=== PATIENT | female | born 2000 | race Caucasian/White ===

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

== ENCOUNTER 2021-05-06 09:34 | Outpatient (CLI) | payer BC, SELFPAY ==
[2021-05-06 09:42] LABS: Bacteria 0 SEEN /hpf (None Seen); Mucous, Urine 0 SEEN /hpf (<or=2+); Red Blood Cells-Urine 0 SEEN /hpf (0-5); Squamous Epithelial Cells - UA 0 SEEN /hpf (5-10); White Blood Cells 0 SEEN /hpf (0-5)
[2021-05-06 11:30] LABS: Color, Urine Yellow (Yellow); Glucose, Dipstick Normal (Normal); Ketone-Dipstick Negative (Negative); Leukocyte Esterase-Dipstick 100 /ul (Negative); Nitrite-Dipstick Negative (Negative); Occult Blood-Urine Negative /ul (Negative); Protein-Dipstick 15 mg/dl (Negative); Specific Gravity, Urine 1.015 (1.002-1.030); Urine Bilirubin Dipstick Negative (Negative); Urine Clarity Clear (Clear); Urine Urobilinogen Normal (Normal)
[2021-05-06 11:50] LABS: Albumin, Serum 4.2 g/dL (3.2-5.0); BUN 13 mg/dL (7-18); BUN/Creat Ratio 13.6 RATIO (10-20); Calcium,Total 9.1 mg/dL (8.5-10.1); Chloride 104 mmol/L (98-107); Creatinine, Serum 0.96 mg/dL (0.55-1.02); EST Glomerular Filtration Rate 80 mL/min (>60); Est Glom Filt Rate - Afr Amer 97 mL/min (>60); Glucose 79 mg/dL (74-106); Phosphorus 3.2 mg/dL (2.5-4.9); Potassium 4.1 mmol/L (3.5-5.1); Sodium Level 138 mmol/L (136-145)
[2021-05-06 11:53] LABS: Vitamin D,25 Hydroxy 16.4 ng/mL
== END 2021-05-06 23:59 | disposition home or self-care (01) ==
LOC: LAB 09:37
PROVIDERS: Referring Provider Internal Medicine Nephrology; Visit Provider Internal Medicine Nephrology
DX: E55.9 Vitamin D deficiency, unspecified (principal); N18.2 Chronic kidney disease, stage 2 (mild)
CPT/HCPCS: 36415; 80069; 81001; 82306

== ENCOUNTER 2021-07-02 10:21 | Outpatient (CLI) | payer BC, SELFPAY ==
[2021-07-02 10:27] LABS: Mucous, Urine 0 SEEN /hpf (<or=2+); Red Blood Cells-Urine 0 SEEN /hpf (0-5)
[2021-07-02 11:23] LABS: Color, Urine Yellow (Yellow); Glucose, Dipstick Normal (Normal); Ketone-Dipstick Negative (Negative); Leukocyte Esterase-Dipstick 500 /ul (Negative); Nitrite-Dipstick Negative (Negative); Occult Blood-Urine Negative /ul (Negative); Protein-Dipstick 15 mg/dl (Negative); Specific Gravity, Urine 1.015 (1.002-1.030); Urine Bilirubin Dipstick Negative (Negative); Urine Clarity Sl. Cloudy (Clear); Urine Urobilinogen Normal (Normal)
[2021-07-02 11:32] LABS: Bacteria 1+ /hpf (None Seen); Squamous Epithelial Cells - UA 0-5 SEEN /hpf (5-10); White Blood Cells 25-50 SEEN /hpf (0-5)
[2021-07-02 11:47] LABS: Albumin, Serum 3.9 g/dL (3.2-5.0); BUN 14 mg/dL (7-18); Calcium,Total 9.2 mg/dL (8.5-10.1); Chloride 106 mmol/L (98-107); EST Glomerular Filtration Rate 76 mL/min (>60); Est Glom Filt Rate - Afr Amer 91 mL/min (>60); Glucose 68 mg/dL (74-106); Phosphorus 4.3 mg/dL (2.5-4.9); Potassium 3.9 mmol/L (3.5-5.1); Sodium Level 141 mmol/L (136-145)
[2021-07-02 11:50] LABS: Vitamin D,25 Hydroxy 23.2 ng/mL
== END 2021-07-02 23:59 | disposition home or self-care (01) ==
PROVIDERS: Referring Provider Internal Medicine Nephrology; Visit Provider Internal Medicine Nephrology
DX: N18.2 Chronic kidney disease, stage 2 (mild) (principal); E55.9 Vitamin D deficiency, unspecified
CPT/HCPCS: 36415; 80069; 81001; 82306

== ENCOUNTER → 2022-08-14 | Outpatient (CLI) | payer BC, SELFPAY ==
[2022-08-14 15:27] LABS: Mucous, Urine 0 SEEN /hpf (<or=2+); Red Blood Cells-Urine 0 SEEN /hpf (0-5)
[2022-08-14 15:44] LABS: Color, Urine Yellow (Yellow); Glucose, Dipstick Normal (Normal); Ketone-Dipstick Negative (Negative); Leukocyte Esterase-Dipstick 100 /ul (Negative); Nitrite-Dipstick Negative (Negative); Occult Blood-Urine Negative /ul (Negative); Protein-Dipstick 30 mg/dl (Negative); Specific Gravity, Urine 1.015 (1.002-1.030); Urine Bilirubin Dipstick Negative (Negative); Urine Clarity Sl. Cloudy (Clear); Urine Urobilinogen 1 mg/dl (Normal)
[2022-08-14 15:59] LABS: Bacteria RARE /hpf (None Seen); Squamous Epithelial Cells - UA 0-5 SEEN /hpf (5-10); White Blood Cells 5-10 SEEN /hpf (0-5)
[2022-08-14 16:05] LABS: Protein, Urine (Random) 28.5 mg/dL (<11.9); Protein:Creat Ratio 184 mg/g CRE (0-200)
[2022-08-14 16:16] LABS: Vitamin D,25 Hydroxy 22.8 ng/mL
[2022-08-14 16:18] LABS: Anion Gap 8 (5-15); BUN 17 mg/dL (7-18); BUN/Creat Ratio 16.2 RATIO (10-20); Calcium,Total 9.4 mg/dL (8.5-10.1); Chloride 105 mmol/L (98-107); Creatinine, Serum 1.05 mg/dL (0.55-1.02); EST Glomerular Filtration Rate 71 mL/min (>60); Est Glom Filt Rate - Afr Amer 85 mL/min (>60); Glucose 86 mg/dL (74-106); Potassium 3.6 mmol/L (3.5-5.1); Sodium Level 137 mmol/L (136-145)
== END | disposition home or self-care (01) ==
LOC: LAB 15:22
PROVIDERS: Referring Provider Nurse Practitioner Adult Health; Visit Provider Nurse Practitioner Adult Health
DX: E55.9 Vitamin D deficiency, unspecified (principal); N18.2 Chronic kidney disease, stage 2 (mild)
CPT/HCPCS: 36415; 80048; 81001; 82306; 82570; 83970; 84156

== ENCOUNTER → 2023-07-01 | Outpatient (CLI) | payer BC, SELFPAY ==
[2023-07-01 13:15] LABS: Anion Gap 4 (5-15); BUN 12 mg/dL (7-18); BUN/Creat Ratio 16.5 RATIO (10-20); Calcium,Total 9.3 mg/dL (8.5-10.1); Chloride 105 mmol/L (98-107); Creatinine, Serum 0.73 mg/dL (0.55-1.02); EST Glomerular Filtration Rate 107 mL/min (>60); Est Glom Filt Rate - Afr Amer 129 mL/min (>60); Glucose 86 mg/dL (74-106); Potassium 3.9 mmol/L (3.5-5.1); Sodium Level 136 mmol/L (136-145)
[2023-07-01 13:27] LABS: Microalbumin,Random Urine 16.3 mg/L (NO RANGE EST.); Microalbumin:Creatinine Ratio 18.1 mg/g CRE (<30 mg/g CRE)
== END | disposition home or self-care (01) ==
LOC: LAB 12:11
PROVIDERS: PCP Registered Nurse; Referring Provider Internal Medicine Nephrology; Visit Provider Internal Medicine Nephrology
DX: N18.2 Chronic kidney disease, stage 2 (mild) (principal)
CPT/HCPCS: 36415; 80048; 82043; 82570

== ENCOUNTER 2024-01-16 04:36 | Inpatient (IN) | payer BC, SELFPAY ==
[2024-01-16] VITALS (95 sets, daily range): BP systolic 104–183; BP diastolic 58–106; PULSE 72–144; RESP 14–18; TEMP 36.3–37.6; O2SAT 86–100; BMI 23.6
[2024-01-16 03:47] LABS: Absolute Lymphocyte Count 1.24 X10^3/uL (0.83-4.51); Basophil# 0.03 X10^3/uL; Basophil% 0.3 % (0-1); Eosinophil# 0.04 X10^3/uL; Eosinophils% 0.4 % (0-5); Hematocrit 32.4 % (37-47); Hemoglobin 11.1 g/dL (12.0-15.0); Lymphocyte # 1.24 X10^3/ul (0.83-4.51); Lymphocyte % 13.4 % (19-41); Mean Corp Hgb Conc 34.3 g/dL (32-36); Mean Corpuscular Hgb 30.7 pg (27.0-32.0); Mean Corpuscular Volume 89.5 fL (81-99); Mean Platelet Vol. 10.4 fl (6.2-12.0); Monocyte# 0.82 X10^3/uL; Monocyte% 8.9 % (0-10); NRBC Flagged by Analyzer 0 % (0-5); Neutrophil # 7.04 X10^3/uL (2.7-7.7); Neutrophil % 76.5 % (47-70); Platelet Count 233 K/mm3 (150-450); RBC Distribution Width CV 13.8 % (11.6-14.6); RBC Distribution Width SD 45.3 fl (35.1-43.9); Red Blood Count 3.62 M/mm3 (4.2-5.4); White Blood Count 9.2 K/mm3 (4.4-11.0)
[2024-01-16 04:13] LABS: Protein, Urine (Random) 35.6 mg/dL (<11.9); Protein:Creat Ratio 497 mg/g CRE (0-200)
[2024-01-16 04:14] LABS: ALB/GLOB Ratio 0.7 RATIO (0.9-2.4); AST(SGOT) 20 U/L (15-37); Alanine Aminotransfer ALT/SGPT 16 U/L (13-56); Albumin, Serum 2.6 g/dL (3.2-5.0); Alkaline Phosphatase 165 U/L (45-117); Anion Gap 7 (5-15); BUN 12 mg/dL (7-18); BUN/Creat Ratio 12.5 RATIO (10-20); Calcium,Total 8.5 mg/dL (8.5-10.1); Chloride 108 mmol/L (98-107); Creatinine, Serum 0.96 mg/dL (0.55-1.02); EST Glomerular Filtration Rate 77 mL/min (>60); Est Glom Filt Rate - Afr Amer 93 mL/min (>60); Estimated Creatinine Clearance 76.04 ml/min; Globulin 3.9 g/dL (2.2-4.2); Glucose 91 mg/dL (74-106); Potassium 3.9 mmol/L (3.5-5.1); Protein, Total 6.5 g/dL (6.4-8.2); Sodium Level 136 mmol/L (136-145); Uric Acid 5.6 mg/dL (2.6-6.0)
[2024-01-16] MEDS: miSOPROStol 25 MCG TABLET PO (05:39)
[2024-01-16] MEDS: fentaNYL 100 MCG/2 ML Ampul IV ×2 (05:39→07:59)
[2024-01-16 07:54] LABS: Syphilis Antibodies Non-reactive
[2024-01-16] MEDS: Lactated Ringers 1,000 ML 999 ML IV (08:23)
[2024-01-16] MEDS: Ondansetron 4 MG/2 ML Vial IV (08:50)
[2024-01-16] MEDS: fentaNYL-bupivacaine (epidural) 100 ML BAG EPIDURAL ×2 (09:59→14:23)
[2024-01-16] MEDS: Lactated Ringers 1,000 ML 200 ML IV (10:16)
--- NOTE | 2024-01-16 10:55 | PCM.HP.OB ---
HPI - General General Date of Admission: 01/16/24 HPI Narrative ABHI ESCOBAR, is a 23 F who presents at 38w5d with irregular contractions. Upon arrival BP mildly elevated but still normal range. BP elevated to 140's and urine P/C ratio elevated, decision for induction of labor due to preeclampsia. complicated by history of CKD but has been stable during . Maternal Data Information KEANU Calculator Estimated Delivery Date Method Current WG Current Estimate 01/25/24 Manual 38w 5d PFSH PFSH Medical History (Updated 01/16/24 @ 20:07 by Grace Barry CNM) Pre-eclampsia Kidney disease Home Medications ?Medication ?Instructions ?Recorded ?Last Taken ?Type aspirin 81 mg tablet,delayed 81 mg PO DAILY 01/16/24 Unknown History release (Adult Aspirin Regimen) vit-iron fum-folic ac 1 tab PO DAILY 01/16/24 Unknown History Allergy/AdvReac Type Severity Reaction Status Date / Time No Known Allergies Allergy Verified 01/16/24 02:06 Surgical History (Updated 01/16/24 @ 05:01 by Deann Ruiz) History of surgery Social History (Updated 07/06/17 @ 14:09 by Salbador LARA, MARCO) Smoking Status: Never smoker History Elective abortions Hx Para 0 Spontaneous abortions Hx # Term Pregnancies Ectopic pregnancies Hx # Pregnancies Multiple births # of living children NST FHR Rate Baby A Baseline: 145 Variability:: Moderate Accelerations:: 15 x 15 Decelerations:: None FHR Category:: Category I Uterine Activity:: every 4 minutes Vital Signs Vital Signs Vital Signs: 01/16/24 02:02 01/16/24 02:02 01/16/24 02:02 Temperature Temperature Source Temporal Pulse Rate 92 Respiratory Rate Blood Pressure 136/91 H BP Systolic 136 BP Diastolic 91 Pulse Ox 01/16/24 02:02 01/16/24 02:02 01/16/24 03:09 Temperature 98.2 F Temperature Source Pulse Rate Respiratory Rate 14 Blood Pressure 141/93 H BP Systolic 141 BP Diastolic 93 Pulse Ox 01/16/24 03:09 01/16/24 03:19 01/16/24 03:19 Temperature Temperature Source Pulse Rate 76 84 Respiratory Rate Blood Pressure 145/93 H BP Systolic 145 BP Diastolic 93 Pulse Ox 01/16/24 05:42 01/16/24 05:42 01/16/24 05:42 Temperature Temperature Source Temporal Pulse Rate 76 Respiratory Rate 14 Blood Pressure BP Systolic BP Diastolic Pulse Ox 01/16/24 05:42 01/16/24 05:42 01/16/24 05:44 Temperature 97.8 F Temperature Source Pulse Rate Respiratory Rate Blood Pressure 138/79 H BP Systolic 138 BP Diastolic 79 Pulse Ox 97 01/16/24 05:44 01/16/24 07:41 01/16/24 07:41 Temperature Temperature Source Pulse Rate 75 93 Respiratory Rate Blood Pressure BP Systolic BP Diastolic Pulse Ox 92 01/16/24 07:41 01/16/24 07:41 01/16/24 07:41 Temperature Temperature Source Pulse Rate 92 Respiratory Rate Blood Pressure 183/106 H BP Systolic 183 BP Diastolic 106 Pulse Ox 98 01/16/24 07:41 01/16/24 07:41 01/16/24 07:41 Temperature Temperature Source Temporal Pulse Rate 77 Respiratory Rate 16 Blood Pressure BP Systolic BP Diastolic Pulse Ox 01/16/24 07:41 01/16/24 07:41 01/16/24 07:42 Temperature 98.6 F Temperature Source Pulse Rate Respiratory Rate Blood Pressure 163/93 H BP Systolic 163 BP Diastolic 93 Pulse Ox 98 01/16/24 07:42 01/16/24 08:04 01/16/24 08:04 Temperature Temperature Source Pulse Rate 76 77 Respiratory Rate Blood Pressure 169/98 H BP Systolic 169 BP Diastolic 98 Pulse Ox 01/16/24 08:05 01/16/24 08:05 01/16/24 09:05 Temperature Temperature Source Pulse Rate 78 91 Respiratory Rate Blood Pressure 146/82 H BP Systolic 146 BP Diastolic 82 Pulse Ox 01/16/24 09:05 01/16/24 09:10 01/16/24 09:10 Temperature Temperature Source Pulse Rate 96 Respiratory Rate Blood Pressure BP Systolic BP Diastolic Pulse Ox 97 98 01/16/24 09:15 01/16/24 09:15 01/16/24 09:20 Temperature Temperature Source Pulse Rate 144 H 88 Respiratory Rate Blood Pressure BP Systolic BP Diastolic Pulse Ox 97 01/16/24 09:20 01/16/24 09:26 01/16/24 09:26 Temperature Temperature Source Pulse Rate 84 Respiratory Rate Blood Pressure 141/90 H BP Systolic 141 BP Diastolic 90 Pulse Ox 97 01/16/24 09:27 01/16/24 09:27 01/16/24 09:28 Temperature Temperature Source Pulse Rate 102 H 86 Respiratory Rate Blood Pressure BP Systolic BP Diastolic Pulse Ox 97 01/16/24 09:28 01/16/24 09:31 01/16/24 09:31 Temperature Temperature Source Pulse Rate 88 Respiratory Rate Blood Pressure 174/98 H BP Systolic 174 BP Diastolic 98 Pulse Ox 94 01/16/24 09:32 01/16/24 09:32 01/16/24 09:33 Temperature Temperature Source Pulse Rate 82 Respiratory Rate Blood Pressure 137/75 H BP Systolic 137 BP Diastolic 75 Pulse Ox 97 01/16/24 09:33 01/16/24 09:37 01/16/24 09:37 Temperature Temperature Source Pulse Rate 80 95 Respiratory Rate Blood Pressure BP Systolic BP Diastolic Pulse Ox 98 01/16/24 09:38 01/16/24 09:38 01/16/24 09:42 Temperature Temperature Source Pulse Rate 78 89 Respiratory Rate Blood Pressure 143/81 H BP Systolic 143 BP Diastolic 81 Pulse Ox 01/16/24 09:42 01/16/24 09:45 01/16/24 09:45 Temperature Temperature Source Pulse Rate 106 H Respiratory Rate Blood Pressure BP Systolic BP Diastolic Pulse Ox 97 86 01/16/24 09:47 01/16/24 09:47 01/16/24 09:52 Temperature Temperature Source Pulse Rate 97 101 H Respiratory Rate Blood Pressure BP Systolic BP Diastolic Pulse Ox 97 01/16/24 09:52 01/16/24 09:57 01/16/24 09:57 Temperature Temperature Source Pulse Rate 94 Respiratory Rate Blood Pressure BP Systolic BP Diastolic Pulse Ox 98 97 01/16/24 09:59 01/16/24 09:59 01/16/24 10:02 Temperature Temperature Source Pulse Rate 83 86 Respiratory Rate Blood Pressure 144/85 H BP Systolic 144 BP Diastolic 85 Pulse Ox 01/16/24 10:02 01/16/24 10:02 01/16/24 10:02 Temperature 98.6 F Temperature Source Temporal Pulse Rate Respiratory Rate Blood Pressure BP Systolic BP Diastolic Pulse Ox 97 01/16/24 10:07 01/16/24 10:07 01/16/24 10:10 Temperature Temperature Source Pulse Rate 87 Respiratory Rate Blood Pressure 129/74 H BP Systolic 129 BP Diastolic 74 Pulse Ox 98 01/16/24 10:10 01/16/24 10:12 01/16/24 10:12 Temperature Temperature Source Pulse Rate 86 83 Respiratory Rate Blood Pressure BP Systolic BP Diastolic Pulse Ox 97 01/16/24 10:17 01/16/24 10:17 01/16/24 10:18 Temperature Temperature Source Pulse Rate 94 Respiratory Rate Blood Pressure 128/73 H BP Systolic 128 BP Diastolic 73 Pulse Ox 99 01/16/24 10:18 01/16/24 10:22 01/16/24 10:22 Temperature Temperature Source Pulse Rate 100 92 Respiratory Rate Blood Pressure BP Systolic BP Diastolic Pulse Ox 99 01/16/24 10:27 01/16/24 10:27 01/16/24 10:29 Temperature Temperature Source Pulse Rate 103 H Respiratory Rate Blood Pressure 133/77 H BP Systolic 133 BP Diastolic 77 Pulse Ox 99 01/16/24 10:29 01/16/24 10:32 01/16/24 10:32 Temperature Temperature Source Pulse Rate 83 85 Respiratory Rate Blood Pressure BP Systolic BP Diastolic Pulse Ox 98 01/16/24 10:37 01/16/24 10:37 01/16/24 10:38 Temperature Temperature Source Pulse Rate 87 Respiratory Rate Blood Pressure 124/71 H BP Systolic 124 BP Diastolic 71 Pulse Ox 98 01/16/24 10:38 01/16/24 10:42 01/16/24 10:42 Temperature Temperature Source Pulse Rate 85 84 Respiratory Rate Blood Pressure BP Systolic BP Diastolic Pulse Ox 98 01/16/24 10:47 01/16/24 10:47 01/16/24 10:52 Temperature Temperature Source Pulse Rate 102 H 100 Respiratory Rate Blood Pressure BP Systolic BP Diastolic Pulse Ox 98 01/16/24 10:52 Temperature Temperature Source Pulse Rate Respiratory Rate Blood Pressure BP Systolic BP Diastolic Pulse Ox 98 Weight Weight: 133 lb Body Mass Index (BMI) 23.6 Physical Exam Const alert and oriented x3 General Appearance: cooperative Orientation / Consciousness: awake, oriented to person, oriented to place and oriented to time Exam Limitations: no limitations HEENT normocephalic Head and Scalp: normal to inspection, normocephalic and atraumatic Face and Sinus: normal facial exam Eyes General Eye: normal appearance of both eyes Neck full ROM Chest Chest: symmetrical chest wall rise Resp normal respiratory effort and normal air movement Auscultation: clear to auscultation bilaterally Cardio regular rate, regular rhythm, S1 normal heart sound, S2 normal heart sound, no murmurs, no rub, no gallops and no clicks GI normal to inspection, nondistended, normoactive bowel sounds and non-tender appearance of the vagina normal Bladder / Kidney Exam: no CVA tenderness Back/Spine normal ROM Extremity normal to inspection and full ROM Skin no rashes or lesions noted Neuro oriented x3, CN's II-XII intact bilaterally and moves all extremities Sensorium / Orientation: awake, alert and oriented to person Motor Exam: clonus absent Deep Tendon Reflexes: Rt Patellar (L4): 2+ and Lt Patellar (L4): 2+ Labs Labs Labs: Blood Type O POSITIVE Antibody Screen NEGATIVE Hct 32.4 % (37-47) L Hgb 11.1 g/dL (12.0-15.0) L Syphilis Total Ab Non-reactive Rubella immune RPR negative HBsAG negative HepC negative HIV negative O positive GC/CT negative GBS negative Assessment & Plan (1) Anxiety: (2) Chronic kidney disease (CKD) stage G2/A1, mildly decreased glomerular filtration rate (GFR) between 60-89 mL/min/1.73 square meter and albuminuria creatinine ratio less than 30 mg/g: (3) Pre-eclampsia: (4) Encounter for induction of labor: PLAN: Plan 1) Admit to labor and delivery induction of labor due to elevated BP and P/C ratio, preeclampsia. 2) Routine labs 3) Continuous EFM 4) Pain management upon request 5) Cytotec for cervical ripening 6) Dr. Kip gates physician and notified of patient status, above assessment, and plan.
[2024-01-16] MEDS: Oxytocin 15 Units/NS 250ml 15 UNITS/250 ML IV.SOLN 2 UNITS IV (12:21)
--- NOTE | 2024-01-16 17:30 | PCM.PN.OB ---
Subjective Subjective Pushing for 3hours, epidural effective and turned down. Increased maternal fatigue and musculoskeletal discomfort. Objective Data Objective Data Vital Signs: Vital Signs Temp Pulse Resp BP Pulse Ox 98.8 F 72 16 157/88 H 98 01/16/24 17:26 01/16/24 17:25 01/16/24 17:26 01/16/24 17:25 01/16/24 17:26 Weight: 133 lb Body Mass Index (BMI) 23.6 Intake & Output: Intake and Output for Last 24 Hours 01/14/24 01/15/24 01/16/24 23:59 23:59 22:59 Intake Total 1250.33 / 1250.33 Output Total 400 / 400 Balance 850.33 / 850.33 Lab / Micro Data 01/16/24 03:35 01/16/24 03:35 Labs: Laboratory Results - last 24 hr 01/16/24 03:35: WBC 9.2, RBC 3.62 L, Hgb 11.1 L, Hct 32.4 L, MCV 89.5, MCH 30.7, MCHC 34.3, RDW Std Deviation 45.3 H, RDW Coeff of Jamar 13.8, Plt Count 233, MPV 10.4, Immature Gran % (Auto) 0.500, Neut % (Auto) 76.5 H, Lymph % (Auto) 13.4 L, [place] % (Auto) 8.9, Eos % (Auto) 0.4, Baso % (Auto) 0.3, Absolute Neuts (auto) 7.0, Absolute Lymphs (auto) 1.24, Nucleated RBC % 0, Sodium 136, Potassium 3.9, Chloride 108 H, Carbon Dioxide 21.0, Anion Gap 7, BUN 12, Creatinine 0.96, Estim Creat Clear Calc 76.04, Est GFR (MDRD) Af Amer 93, Est GFR (MDRD) Non-Af 77, BUN/Creatinine Ratio 12.5, Glucose 91, Uric Acid 5.6, Calcium 8.5, Total Bilirubin 0.80, AST 20, ALT 16, Alkaline Phosphatase 165 H, Total Protein 6.5, Albumin 2.6 L, Globulin 3.9, Albumin/Globulin Ratio 0.7 L, U Random Total Protein 35.6 H, Urine Creatinine 71.70, Protein/Creatinin Ratio 497 H, Syphilis Total Ab Non-reactive, Blood Type O POSITIVE, Antibody Screen NEGATIVE Physical Exam Manual OB Exam: estimated gestational size appropriate, presentation cephalic, dilated 10/100%/+2 and effaced NST FHR Rate Baby A Baseline: 135 Variability:: Moderate Accelerations:: 15 x 15 Decelerations:: None FHR Category:: Category I Uterine Activity:: shaquille 2-4 minutes, strong Assessment & Plan (1) Encounter for induction of labor: (2) Chronic kidney disease (CKD) stage G2/A1, mildly decreased glomerular filtration rate (GFR) between 60-89 mL/min/1.73 square meter and albuminuria creatinine ratio less than 30 mg/g: (3) Pre-eclampsia: (4) Anxiety: PLAN: Plan 1) Epidural decreased with consent to assist with stronger pushing efforts 2) Pitocin at 2mu's 3) Increased maternal exhaustion. Discussed option for vacuum and she would like to proceed. Reviewed if not effective would need section and voiced understanding. 4) notified and will be en route for vacuum.
--- NOTE | 2024-01-16 20:06 | EX.PCM.OBVAG ---
Assessment & Plan (1) Pre-eclampsia: (2) (normal spontaneous vaginal delivery): (3) Failed vacuum extraction delivery: (4) Second degree perineal laceration: Maternal Data Information KEANU Calculator Estimated Delivery Date Method Current WG Current Estimate 01/25/24 Manual 38w 5d Vaginal Delivery Maternal Presentation Maternal Presentation: Medically Indicated Induction (Preeclampsia at term) Type of Induction: Cytotec Medical Reason for Induction: Preeclampsia, eclampsia Vaginal Delivery Information Procedure Performed: Spontaneous Vaginal Delivery and Vacuum Assisted Vaginal Delivery Station at time of placement: +2 (vacuum attempts by , see note. ) Number of vacuum pulls: 3 Number of vacuum pop offs: 2 Date of Procedure: 01/16/24 Pre-Procedure Diagnosis: Preeclampsia, induction of labor Post-Procedure Diagnosis: after failed vacuum. Second degree perineal laceration. Type of anesthesia: Epidural Estimated Blood Loss: 400 ml Time of Delivery: 19:37 Findings Description of procedure: Progressed to complete with urge to push. Epidural for pain management. Initially had good pushing efforts and then limited descent. Pushing efforts then became stronger and made descent progress. Noted to be LOP position. After 3 hours of pushing, called for vacuum due to maternal exhaustion and patient request. Failed vacuum attempt for delivery but patient did progress and descend with vacuum efforts. See. Dr. Shin note. Continued descent and approximately 5 hours of pushing. Residential Direct Support Professional present for delivery. of viable female over 2nd degree perineal laceration . APGARS 1,3, and 4 respectively. Infant head delivered with body slightly delayed due pushing efforts, no shoulder dystocia. Body immediately forthcoming after next push, CAN x1, delivered through, trailing meconium. Placed on maternal abdomen, poor tone, poor color, no breathing efforts. Cord immediately clamped and cut, handed to awaiting nursery staff. Pitocin started for active 3rd stage management. Placenta delivered intact via deleon, 3 vessel cord intact. Perineum inspected and revealed 2nd degree perineal laceration. Repaired with 3.0 vicryl rapide and epidural. Fundus firm and hemostasis achieved. EBL 400ml. with PPV, color returned, breathing efforts, and good heart rate. [facility]'s transport for continued management called by hydraulic strainer operator and continued care by [facility]. See hydraulic strainer operator note for details. Mom stable. present for pushing efforts after vacuum attempt and delivery. . Presentation: Vertex and LOP Amniotic Membrane Rupture Type: Artificial Amniotic Fluid Description: Clear Placental Delivery Description: Spontaneous Placenta Disposition: [facility] Specimen collected: No Cord Vessel Description: 3 Vessels Cord Entanglement: Around neck x 1, loose Nuchal Cord Compression: Without compression Cord Gases: ABG and VBG A Gender: Female (1 minute): 1 (5 minute): 3 (4 at 10 minutes) Delayed Cord Clamping: No Post Vaginal Deli Medications given after delivery: IV Pitocin Episiotomy Description: None Laceration: Perineal Extension/lac and 2nd degree Complication Complications: No
[2024-01-16] MEDS: Oxytocin 15 Units/NS 250ml 15 UNITS/250 ML IV.SOLN 83 UNITS IV (20:17)
--- NOTE | 2024-01-16 20:38 | NURSING ---
1737 see connect for pitocin adjustment
[2024-01-16] MEDS: Acetaminophen 500 MG Tablet 1000 MG PO (22:49)
--- NOTE | 2024-01-16 23:02 | NURSING ---
This RN took out epidural cath at 2244 and blue tip was intact
--- NOTE | 2024-01-16 23:48 | NURSING ---
report given to antoinette MCGEE . that rn to assume care of pt at this time
[2024-01-17 01:33] VITALS: PULSE 90; O2SAT 98
[2024-01-17 01:34] VITALS: BP 126/85; PULSE 85; RESP 20; TEMP 37.2; O2SAT 98
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
[2024-01-17 08:45] VITALS: BP 142/98; PULSE 79; RESP 16; TEMP 36.6
[2024-01-17] MEDS: Ibuprofen 600 MG Tablet PO (09:01)
[2024-01-17] MEDS: NIFEdipine 30 MG Tablet PO (09:53)
[2024-01-17 11:51] VITALS: BP 142/102; PULSE 79; RESP 16; TEMP 36.2
[2024-01-17] MEDS: Benzocaine/Lanolin/Aloe Vera 85 GM Spray 1 SPRAY TOPICAL (12:02)
--- NOTE | 2024-01-17 12:56 | PCM.PN.OB ---
Subjective Subjective Patient evaluated this morning at bedside with RN. She is doing well and offers no complaints. Denies REVELES, vision changes, upper abdominal pain, nausea, vomiting. Tolerating a regular diet. Ambulating and voiding without difficulty. Lochia normal. Denies lightheadedness, CP, SOB, leg pain. She would like to be discharged as soon as possible as baby was transferred out to another facility. Her boyfriend has left to be present with baby. She is tearful this morning and reports a possible history of anxiety, but never formally diagnosed. No depression, SI, HI. Objective Data Objective Data Vital Signs: Vital Signs Temp Pulse Resp BP Pulse Ox O2 Del Method 97.2 F L 79 16 142/102 H 98 Room Air 01/17/24 11:51 01/17/24 11:51 01/17/24 11:51 01/17/24 11:51 01/17/24 01:34 01/17/24 01:34 Oxygen Delivery Method Room Air Weight: 133 lb Body Mass Index (BMI) 23.6 Intake & Output: Intake and Output for Last 24 Hours 01/15/24 01/16/24 01/17/24 23:59 22:59 23:59 Intake Total 2108.04 / 2108.04 Output Total 1500 / 1500 Balance 608.04 / 608.04 Lab / Micro Data 01/16/24 03:35 01/16/24 03:35 Physical Exam Const alert and no apparent distress Constitutional Narrative: Tearful at end of exam General Appearance: comfortable HEENT normocephalic Resp normal respiratory effort GI soft to palpation, non-tender and non-distended GI Narrative: FF@U-1 Extremity normal to inspection and no calf tenderness Assessment & Plan (1) Second degree perineal laceration: (2) (normal spontaneous vaginal delivery): PLAN: Doing well . Routine care. Reviewed discharge instructions. (3) Anxiety: PLAN: Patient tearful today. Denies being on medication or established with psych or counseling. She would like a referral to psych and I will place for her to follow up as outpatient. (4) Pre-eclampsia: PLAN: No symptoms of pre eclampsia this morning. Patient is tearful and would like discharged as soon as possible as baby has been transferred to another facility. Discussed risks of pre eclampsia and risks of elevated blood pressure, and questions answered. Discussed importance of monitoring blood pressure at home, and close follow up in office if she wants discharged to be with baby which is very reasonable. She understands the importance of follow up and will obtain a blood pressure cuff. Discussed how to monitor BP at home and reasons to call. Start Procardia this AM and cont to monitor BP today before possible discharge later today. Discussed calling office today for a blood pressure check in office in 1-2 days.
--- NOTE | 2024-01-17 13:04 | DCINST_ITS ---
Discharge Instructions Diet Discharge Diet: No restrictions Activity Discharge Activity: May Drive and May Shower May resume sexual activity in: 6 weeks Ice area for (Minutes): 15 Weight Bearing Status: Weight bearing as tolerated Lifting Restrictions: nothing heavier than baby Additional Activity Instructions:: Check your blood pressure before taking the blood pressure medication, and after you take the blood pressure medication. Keep a log of your blood pressures. Follow up in the office in 1-2 days for a blood pressure check. Check your blood pressure and call the office with severe headaches, persistent visual changes, upper abdominal pain, vomiting. If your blood pressure is 160/110 or higher you need to be evaluated and please call office or after hours line. Dressing / Incision Call your doctor if you observe: Fever of 101 or Higher, Inability to urinate, Inability to have a bowel movement, Using more than 1 pad per hour, Shortness of breath, Dizziness, Fainting spells, Swelling in the ankles, Chest pain, Increased palpitations (irregular heartbeat), Calf discomfort and Uncontrolled pain Cleanse incision/area with: Soap & Water Follow Up Care Please Follow Up With: Nadine Shin MD When: 1 week for blood pressure check 6 weeks exam Test Results: Test results from this visit will be discussed in further detail at your follow- up appointment, if applicable. Discharge Plan Admission Admit Date/Time: 01/16/24 04:36 Primary Reason for Your Visit: delivery Attending Provider: Grace Barry Primary Care Provider: Shira Gonzalez NP Instructions Patient Instructions: After a Vaginal Discharge Orders/Prescriptions Prescriptions: New nifedipine 30 mg Tablet Extended Release 24hr 30 mg PO DAILY Qty: 30 1RF Continued vit-iron fum-folic ac [ Tablet] 1 tab PO DAILY Discontinued aspirin [Adult Aspirin Regimen] 81 mg tablet,delayed release (DR/EC) 81 mg PO DAILY Referrals / Follow Up: Shira Gonzalez NP, [facility] [Primary Care Provider] - Disposition Disposition (needs filled in before D/C Order can be placed): Home, Self Care
[2024-01-17 13:18] VITALS: BP 130/86
== END 2024-01-17 14:00 | disposition home or self-care (01) | DRG 806 ==
LOC: WPOUT 01-17 08:41 → WP 01-17 08:41
PROVIDERS: Admitting Provider Advanced Practice Midwife; PCP Registered Nurse; Referring Provider Advanced Practice Midwife; Visit Provider Advanced Practice Midwife
DX: O14.94 Unspecified pre-eclampsia, complicating childbirth (principal); Z37.0 Single live birth; O26.833 Pregnancy related renal disease, third trimester; N18.2 Chronic kidney disease, stage 2 (mild); F41.9 Anxiety disorder, unspecified; O99.344 Other mental disorders complicating childbirth; O66.5 Attempted application of vacuum extractor and forceps; O26.813 Pregnancy related exhaustion and fatigue, third trimester; O70.1 Second degree perineal laceration during delivery; O69.81X0 Labor and delivery complicated by cord around neck, without compression, not applicable or unspecified; O26.893 Other specified pregnancy related conditions, third trimester; R03.0 Elevated blood-pressure reading, without diagnosis of hypertension; Z3A.38 38 weeks gestation of pregnancy; Z79.82 Long term (current) use of aspirin; Z79.899 Other long term (current) drug therapy
CPT/HCPCS: 59025; 59050; 80053; 82570; 84156; 84550; 85025; 86780; 86850; 86900; 86901; 99221; J7120; G0378; J2405

== ENCOUNTER → 2024-01-21 | Outpatient (CLI) | payer BC, SELFPAY ==
[2024-01-21 09:34] LABS: Anion Gap 7 (5-15); BUN 16 mg/dL (7-18); BUN/Creat Ratio 20.8 RATIO (10-20); Chloride 107 mmol/L (98-107); Creatinine, Serum 0.77 mg/dL (0.55-1.02); EST Glomerular Filtration Rate 100 mL/min (>60); Est Glom Filt Rate - Afr Amer 121 mL/min (>60); Glucose 89 mg/dL (74-106); Potassium 3.8 mmol/L (3.5-5.1); Sodium Level 138 mmol/L (136-145)
[2024-01-21 09:59] LABS: Microalbumin,Random Urine 77.9 mg/L (NO RANGE EST.); Microalbumin:Creatinine Ratio 137.9 mg/g CRE (<30 mg/g CRE)
== END | disposition home or self-care (01) ==
LOC: LAB 08:32
PROVIDERS: PCP Registered Nurse; Referring Provider Internal Medicine Nephrology; Visit Provider Internal Medicine Nephrology
DX: N18.2 Chronic kidney disease, stage 2 (mild) (principal)
CPT/HCPCS: 36415; 80048; 82043; 82570